=== PATIENT | male | born 1970 | race Caucasian/White ===

== ENCOUNTER 2023-10-29 18:59 | Emergency (ER) | payer OTHER ==
[~2023-10-29] VITALS: Ht 185.4 cm; Wt 112.2 kg
[2023-10-30] MEDS: LIDOCAINE W/EPINEPHRINE 1% 20ML VIAL SC ONE (04:00)
[2023-10-30] MEDS ORDERED: CEPH500C PO (04:43)
[2023-10-30 05:19] VITALS: BP 135/62; TEMP 97.5; O2SAT 92
== END 2023-10-30 05:21 | disposition home or self-care (01) ==
LOC: M ED 18:59
DX: S61.412A Laceration without foreign body of left hand, initial encounter (principal); Y92.9 Unspecified place or not applicable; Y93.9 Activity, unspecified; Y99.0 Civilian activity done for income or pay; F10.10 Alcohol abuse, uncomplicated; Z79.2 Long term (current) use of antibiotics